=== PATIENT | female | born 1960 | race Caucasian/White ===

== ENCOUNTER 2019-11-08 07:42 | Day surgery (SDC) | payer BC ==
[~2019-11-08] VITALS: Ht 162.6 cm; Wt 66.6 kg
[2019-11-08] MEDS ORDERED: LACTATED RINGERS 1,000 ML IV SCH (08:29)
[2019-11-08] MEDS ORDERED: CHLORHEXIDINE 15 ML UDC MM ONE (08:30)
[2019-11-08] MEDS ORDERED: NONE PER PT (08:32)
[2019-11-08 08:51] VITALS: BP 115/77
[2019-11-08] MEDS ORDERED: MIDAZOLAM 1 MG/ML, 2ML ONE (09:22)
[2019-11-08] MEDS ORDERED: FENTANYL PF 100 MCG/2ML ONE (09:22)
[2019-11-08] MEDS ORDERED: hydrALAzine 20 MG/ML, 1ML IV PRN (10:30)
[2019-11-08] MEDS ORDERED: FENTANYL PF 100 MCG/2ML IV PRN (10:30)
[2019-11-08] MEDS ORDERED: PROMETHAZINE 25 MG/ML, 1ML IVPush PRN (10:30)
[2019-11-08] MEDS ORDERED: LABETALOL 5MG/ML, 20ML IV PRN (10:30)
[2019-11-08] MEDS ORDERED: OXYcodone 5 MG/5 ML ORAL.SOL UDC PO PRN (10:30)
[2019-11-08] MEDS ORDERED: ACETAMINOPHEN 325 MG TABLET PO PRN (10:30)
[2019-11-08] MEDS ORDERED: ONDANSETRON 2MG/ML, 2ML IVPush PRN (10:30)
[2019-11-08] MEDS ORDERED: MEPERIDINE/PF 25MG/0.5ML IVPush PRN (10:30)
[2019-11-08] MEDS ORDERED: morphine SULFATE 10 MG/ML, 1ML IVPush PRN (10:30)
[2019-11-08] MEDS ORDERED: PROPOFOL 10 MG/ML, 20ML ONE ×2 (10:54→11:12)
== END 2019-11-08 13:05 | disposition home or self-care (01) ==
LOC: OUT 07:42
PROVIDERS: ATTEND Internal Medicine Geriatric Medicine
DX: K62.89 Other specified diseases of anus and rectum (principal); Z11.59 Encounter for screening for other viral diseases; D12.3 Benign neoplasm of transverse colon; Z72.89 Other problems related to lifestyle; Z01.818 Encounter for other preprocedural examination
CPT/HCPCS: 45380; 45391; 87635; 88305; 93005; J2250; J2704; J3010; J7120